=== PATIENT | male | born 1960 | race Hispanic/Latino ===

== ENCOUNTER → 2018-08-06 | Outpatient (CLI) | payer OTHER | END | disposition home or self-care (01) | LOC: SHCH 13:07 | PROVIDERS: ATTEND Internal Medicine Cardiovascular Disease | DX: I35.0 Nonrheumatic aortic (valve) stenosis (principal) | CPT/HCPCS: 93306 ==

== ENCOUNTER → 2019-02-09 | Outpatient (CLI) | payer OTHER ==
[~2019-02-09] MED LIST: AEC81 PO; DIPH25TA22 PO; FOLI1TAB61 PO; GLIP10TA9 PO; HYDR-4154 PO; METO25TA6 PO; PRED20TA3 PO; SEVE800T27 PO
== END | disposition home or self-care (01) ==
LOC: SHCH 13:32
PROVIDERS: ATTEND Internal Medicine Cardiovascular Disease
DX: I08.3 Combined rheumatic disorders of mitral, aortic and tricuspid valves (principal); I11.9 Hypertensive heart disease without heart failure
CPT/HCPCS: 93306

== ENCOUNTER → 2019-02-16 | Outpatient (CLI) | payer OTHER ==
[~2019-02-16] VITALS: Ht 177.8 cm; Wt 101.6 kg
[~2019-02-16] MED LIST changes: -AEC81 PO; -DIPH25TA22 PO; -FOLI1TAB61 PO; -GLIP10TA9 PO; -HYDR-4154 PO; -METO25TA6 PO; -PRED20TA3 PO; +REGADENOSON 0.4 MG/5 ML PF SYG IVP SCH; -SEVE800T27 PO
== END | disposition home or self-care (01) ==
LOC: SHCH 07:48
PROVIDERS: ATTEND Internal Medicine Cardiovascular Disease
DX: I25.119 Atherosclerotic heart disease of native coronary artery with unspecified angina pectoris (principal); I63.9 Cerebral infarction, unspecified
CPT/HCPCS: 78452; 93017; 96374; A9500 ×2; J2785

== ENCOUNTER 2019-03-09 05:51 | Day surgery (SDC) | payer OTHER ==
[2019-03-02 08:43] LABS: BASOPHILS % (AUTO) 0.9 % (0.0-5.0); HEMATOCRIT 33.3 % (42-54); LYMPHOCYTES % (AUTO) 16.8 % (21.0-51.0); MEAN CORPUSCULAR HEMOGLOBIN 33.5 pg (27.0-33.0); MEAN CORPUSCULAR HGB CONC 33.8 g/dL (32.0-36.0); MONOCYTES % (AUTO) 9.6 % (3.0-13.0); NEUTROPHILS % (AUTO) 68.7 % (40.0-77.0); NUCLEATED RED BLOOD CELLS 0.1 % (0.0-0.19); PLATELET COUNT (AUTO) 134 K/uL (130-400); RED BLOOD CELL COUNT(AUTO) 3.37 MIL/uL (4.50-6.20); RED CELL DISTRIBUTION WIDTH 14.8 % (11.0-15.5); WHITE BLOOD COUNT (AUTO) 5.8 K/uL (4.8-10.8)
[2019-03-02 08:56] LABS: POTASSIUM 4.7 mmol/L (3.5-5.1)
[2019-03-02 08:59] LABS: CREATININE 9.3 mg/dL (0.5-1.5)
[2019-03-02 09:14] LABS: INR 0.96 (0.85-1.15); PARTIAL THROMBOPLASTIN TIME 25.6 SEC (26.3-35.5); PROTHROMBIN TIME 10.1 SEC (9.6-11.6)
[2019-03-02 09:35] VITALS: BP 142/55
--- NOTE | 2019-03-03 13:15 | NUR ---
ABNORMAL LABS/BLOOD TRANSFUSION: SPOKE WITH CYNDY FLORES AND INFORMED HIM OF PATIENT'S ELEVATED BUN 43 AND CREATININE 9.3, NO NEW ORDERS RECEIVED. PATIENT ON HEMODIALYSIS MWF. ALSO NOTIFIED CYNDY FLORES REGARDING PATIENT'S REFUSAL FOR BLOOD PRODUCTS. NO ORDERS RECEIVED. OK TO PROCEED WITH SCHEDULED PROCEDURE.
--- NOTE | 2019-03-08 09:09 | NUR ---
LABS INFORMED CYNDY RUTH , OF PRE-MEDICATIONS ON DAY OF PROCEDURE. ORDERS RECEIVED TO GIVE SOLU-MEDROL 125MG IV AND BENADRYL 25 MG IV DELIVERY DIRECTOR DAY OF PROCEDURE.
[~2019-03-09] VITALS: Ht 176.5 cm; Wt 100.9 kg
[2019-03-09] VITALS (13 sets, daily range): BP systolic 126–158; BP diastolic 54–66
[~2019-03-09 05:51] MED LIST changes: +AEC81 PO; +DIPH25TA22 PO; +FOLI1TAB61 PO; +GLIP10TA9 PO; +HYDR-4154 PO; +METO25TA6 PO; +PRED20TA3 PO; -REGADENOSON 0.4 MG/5 ML PF SYG IVP SCH; +SEVE800T27 PO
[2019-03-09] MEDS ORDERED: DiphenhydrAMINE HCL 50 MG/ML VIAL IV SCH (06:00)
[2019-03-09] MEDS ORDERED: METHYLPREDNISOLONE SOD SUCC 125MG/2ML VIAL IVP SCH (06:00)
--- NOTE | 2019-03-09 06:29 | NUR ---
MARK NAYLOR PAGED TO REPORT BLOOD GLUCOSE 406.
[2019-03-09] MEDS ORDERED: SODIUM CHLORIDE 0.9% 1000ML 1,000 ML IV ONE (06:31)
[2019-03-09] MEDS ORDERED: INSULIN HUMULIN R 100 UNIT/ML 3ML ONE ×3 (06:41→09:56)
[2019-03-09] MEDS ORDERED: LIDOCAINE HCL 2% 20ML ONE (07:08)
[2019-03-09] MEDS ORDERED: IOHEXOL 350 MG/ML 100ML INFUS..BTL IV ONE ×2 (07:08→07:58)
[2019-03-09] MEDS ORDERED: NITROGLYCERIN 5 MG/ML 10 ML VIAL IV ONE (07:08)
[2019-03-09] MEDS ORDERED: ATOR40TA71 PO (07:24)
[2019-03-09] MEDS ORDERED: LABETALOL 20 MG/4 ML DISP.SYRIN IV ONE ×2 (08:15→09:09)
[2019-03-09] MEDS ORDERED: DEXTROSE 50%-WATER 50 ML DISP.SYRIN IV PRN (08:45)
[2019-03-09] MEDS ORDERED: SODIUM CHLORIDE 0.9% 10 ML VIAL IVP SCH (08:45)
[2019-03-09] MEDS ORDERED: GLUCAGON 1MG KIT 1 MG ML IM PRN (08:45)
[2019-03-09] MEDS ORDERED: HYDRALAZINE HCL 20 MG/ML VIAL ONE (09:13)
--- NOTE | 2019-03-09 09:47 | NUR ---
DR. MIGUELITO CHAMBERS.
[2019-03-09] MEDS: INSULIN HUMULIN R 100 UNIT/ML 3ML SQ SCH ×2 (10:02→12:45)
--- NOTE | 2019-03-09 10:04 | NUR ---
CALLED BACK. DR. FARLEY NOTIFIED OF CONSULT PER DR. WHITTINGTON.
[2019-03-09] MEDS ORDERED: INSULIN HUMULIN R 100 UNIT/ML 3ML SQ SCH (12:00)
--- NOTE | 2019-03-09 14:10 | NUR ---
DR. FARLEY AT BEDSIDE TALKING TO PATIENT. PER DR. FARLEY PT OK TO BE DISCHARGED. PT NEEDS TO GO TO DIALYSIS SCHEDULED TOMORROW.
--- NOTE | 2019-03-09 17:41 | NUR ---
NURSING: PT IS AAOX3 NO C/O OF PAIN TO RT GROIN NO DISTRESS, VITAL AT BASELINE AND STABLE. D/C INSTRUCTIONS GIVEN TO PT AND WITH EMERGENCY CARE INCASE OF AN ACTIVE BLEEDING. PT AND VERBALIZED UNDERSTANDING. PT ABLE TO DRESS WITH ASSISTANCE FROM HIS , PLACED IN A WHEELCHAIR AND DRIVEN HOME.
== END 2019-03-09 17:53 | disposition home or self-care (01) ==
LOC: DAH 05:51 → EDSTATUS 03-10 08:00
PROVIDERS: ATTEND Internal Medicine Cardiovascular Disease
DX: I35.0 Nonrheumatic aortic (valve) stenosis (principal); I35.1 Nonrheumatic aortic (valve) insufficiency; I20.9 Angina pectoris, unspecified; Z91.041 Radiographic dye allergy status; Z88.5 Allergy status to narcotic agent; Z79.82 Long term (current) use of aspirin; Z79.899 Other long term (current) drug therapy; Z79.01 Long term (current) use of anticoagulants
CPT/HCPCS: 36415; 71045; 80048; 82948 ×3; 85025; 85610; 85730; 93005; 93460; 93567; A4606; C1769 ×2; C1894 ×2; J0360; J1200; J1644; J1815 ×4; J2930; J3490; J7030; Q9965 ×3; Q9967 ×2